=== PATIENT | male | born 1970 | race Caucasian/White ===

== ENCOUNTER 2023-01-16 19:49 | Emergency (ER) | payer OTHER, SELFPAY ==
[2023-01-16 20:01] VITALS: BP 156/82; PULSE 90; RESP 18; TEMP 36.9; O2SAT 100; BMI 27.1
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
[2023-01-16] MEDS: ondansetron 4 MG Tablet PO (20:42)
[2023-01-16 21:55] VITALS: BP 132/87; PULSE 88; RESP 16; O2SAT 100
== END 2023-01-16 22:01 | disposition home or self-care (01) ==
PROVIDERS: Emergency Provider Nurse Practitioner Family; PCP Family Medicine
DX: S09.8XXA Other specified injuries of head, initial encounter (principal); S16.1XXA Strain of muscle, fascia and tendon at neck level, initial encounter; V19.3XXA Pedal cyclist (driver) (passenger) injured in unspecified nontraffic accident, initial encounter
CPT/HCPCS: 70450; 72125; 99284; Q0162